=== PATIENT | female | born 1965 | race Caucasian/White ===

== ENCOUNTER 2023-10-22 15:49 | Emergency (ER) | payer OTHER, MEDICAID ==
[~2023-10-22] VITALS: Ht 157.5 cm; Wt 64.0 kg
[~2023-10-22 15:49] MED LIST: AMLO5TAB88 PO; FAMO20TA8 PO; LEVO50TA8 PO; LISI-186 PO; OLAN2.5T29 PO
[2023-10-22 16:00] VITALS: O2SAT 99
[2023-10-22] MEDS ORDERED: ACETAMINOPHEN 325MG TABLET PO ONE (16:00)
[2023-10-22 17:57] VITALS: BP 145/72; PULSE 85; RESP 17; TEMP 98.1
[2023-10-22] MEDS ORDERED: CLONIDINE 0.1MG TABLET PO ONE (19:00)
== END 2023-10-22 18:31 | disposition home or self-care (01) ==
LOC: ER 15:49
DX: S93.401A Sprain of unspecified ligament of right ankle, initial encounter (principal); J45.909 Unspecified asthma, uncomplicated; F31.9 Bipolar disorder, unspecified; Z88.0 Allergy status to penicillin; W01.0XXA Fall on same level from slipping, tripping and stumbling without subsequent striking against object, initial encounter; Y93.89 Activity, other specified; Y92.89 Other specified places as the place of occurrence of the external cause; Y99.8 Other external cause status
CPT/HCPCS: 73600; 99283